=== PATIENT | female | born 1990 | race African-American/Black ===

== ENCOUNTER 2018-03-23 07:53 | Emergency (ER) | payer MEDICAID, OTHER ==
[~2018-03-23] VITALS: Ht 167.6 cm; Wt 123.0 kg
[~2018-03-23 07:53] MED LIST: AMOXICILLIN; IBUP-2030; NITR100C11
[2018-03-23] MEDS ORDERED: IBUPROFEN 600MG TABLET PO ONE (10:00)
[2018-03-23 11:05] VITALS: BP 156/90
== END 2018-03-23 11:21 | disposition home or self-care (01) ==
LOC: ER 07:55
DX: H60.91 Unspecified otitis externa, right ear (principal); Z98.890 Other specified postprocedural states; Z79.899 Other long term (current) drug therapy
CPT/HCPCS: 99283

== ENCOUNTER 2019-07-31 20:55 | Emergency (ER) | payer OTHER ==
[~2019-07-31] VITALS: Ht 167.6 cm; Wt 100.0 kg
[~2019-07-31 20:55] MED LIST changes: -AMOXICILLIN; -NITR100C11
[2019-08-01 02:12] LABS: HEMATOCRIT. 39.4 % (36.0-48.0); HEMOGLOBIN. 13.5 g/dL (12.0-16.0); MEAN CORPUSCULAR HEMOGLOBIN 31.6 pg (28.0-32.0); MEAN CORPUSCULAR VOLUME 91.9 fL (81.0-99.0); MEAN PLATELET VOLUME 8.6 fl (7.4-10.4); PLATELET 247 x1000/uL (130-400); RED BLOOD CELL COUNT 4.28 mill/uL (4.2-5.4); RED CELL DISTRIBUTION WIDTH 13.6 % (11.6-14.6)
[2019-08-01 02:16] LABS: CHLORIDE 103 mEq/L (98-107)
[2019-08-01] MEDS: ACETAMINOPHEN 325MG TABLET PO STA ×2 (02:21→05:34)
[2019-08-01] MEDS: KETOROLAC 30MG/ML VIAL IV STA (02:21)
[2019-08-01] MEDS: SODIUM CHLORIDE 0.9% 1,000 ML IV ONE (02:21)
[2019-08-01] MEDS: ONDANSETRON HCL 4MG/2ML INJ IV STA (02:21)
[2019-08-01 03:14] LABS: PLATELET ESTIMATE NORMAL
[2019-08-01 03:37] LABS: CLARITY URINE CLOUDY (CLEAR); COLOR URINE YELLOW (YELLOW); KETONES URINE 2+ (NEGATIVE); LEUKOCYTE ESTERASE URINE 2+ (NEGATIVE); NITRITE URINE NEGATIVE (NEGATIVE); OCCULT BLOOD URINE NEGATIVE (NEGATIVE); PROTEIN URINE NEGATIVE (NEGATIVE); SPECIFIC GRAVITY URINE 1.018 (1.005-1.030); UROBILINOGEN URINE 0.2 E.U./dL (0.2-1.0)
[2019-08-01] MEDS: CEFTRIAXONE 1 G PREMIX 50 ML IV STA (04:24)
[2019-08-01 05:00] VITALS: BP 137/84
[2019-08-01] MEDS ORDERED: KETOROLAC 30MG/ML VIAL IV NR (05:31)
== END 2019-08-01 06:48 | disposition home or self-care (01) ==
LOC: ER 20:55
DX: J10.1 Influenza due to other identified influenza virus with other respiratory manifestations (principal); N39.0 Urinary tract infection, site not specified; M60.89 Other myositis, multiple sites
CPT/HCPCS: 36415; 71045; 80053; 81003; 82962; 85025; 87804; 96365; 96366; 96375; 99284; J0696; J1885; J2405; J7030

== ENCOUNTER 2020-12-19 17:09 | Emergency (ER) | payer MEDICAID, OTHER ==
[~2020-12-19] VITALS: Ht 170.2 cm; Wt 125.0 kg
[2020-12-19] MEDS ORDERED: VISCOUS LIDOCAINE 2% 15 ML UDC PO ONE (17:30)
[2020-12-19] MEDS ORDERED: MAGNESIUM/ALUMINUM HYDROXIDE/SIMETHICONE 30ML UDC PO ONE (17:30)
[2020-12-19] MEDS ORDERED: ONDANSETRON 4MG ODT PO ONE (17:30)
[2020-12-19 18:43] LABS: CHLORIDE 106 mEq/L (98-107)
[2020-12-19 18:48] LABS: HEMATOCRIT. 38.7 % (36.0-48.0); HEMOGLOBIN. 13.5 g/dL (12.0-16.0); MEAN CORPUSCULAR HEMOGLOBIN 31.8 pg (28.0-32.0); MEAN CORPUSCULAR VOLUME 90.9 fL (81.0-99.0); MEAN PLATELET VOLUME 9.6 fl (7.4-10.4); PLATELET 242 x1000/uL (130-400); RED BLOOD CELL COUNT 4.26 mill/uL (4.2-5.4); RED CELL DISTRIBUTION WIDTH 13.5 % (11.6-14.6)
[2020-12-19 19:25] LABS: PLATELET ESTIMATE NORMAL
[2020-12-19 20:16] LABS: CLARITY URINE CLOUDY (CLEAR); COLOR URINE YELLOW (YELLOW); KETONES URINE 2+ (NEGATIVE); LEUKOCYTE ESTERASE URINE TRACE (NEGATIVE); NITRITE URINE NEGATIVE (NEGATIVE); OCCULT BLOOD URINE NEGATIVE (NEGATIVE); PH URINE 7.5 (4.5-8.0); PROTEIN URINE NEGATIVE (NEGATIVE); SPECIFIC GRAVITY URINE 1.017 (1.005-1.030); UROBILINOGEN URINE 0.2 E.U./dL (0.2-1.0)
[2020-12-19] MEDS ORDERED: OMEP40CA12 MT (20:45)
[2020-12-19 21:10] VITALS: BP 144/91
== END 2020-12-19 21:14 | disposition home or self-care (01) ==
LOC: ER 17:09
DX: K29.70 Gastritis, unspecified, without bleeding (principal); R03.0 Elevated blood-pressure reading, without diagnosis of hypertension; K76.9 Liver disease, unspecified; R31.9 Hematuria, unspecified
CPT/HCPCS: 36415; 76700; 80053; 81003; 81025; 83690; 85025; 99284; Q0162

== ENCOUNTER 2021-05-04 09:34 | Emergency (ER) | payer MEDICAID ==
[~2021-05-04] VITALS: Ht 165.1 cm; Wt 117.0 kg
[~2021-05-04 09:34] MED LIST changes: +OMEP40CA20 MT
[2021-05-04] MEDS ORDERED: ACETAMINOPHEN 325MG TABLET PO STA (09:51)
[2021-05-04] MEDS ORDERED: SODIUM CHLORIDE 0.9% 1,000 ML IV ONE (10:00)
[2021-05-04] MEDS ORDERED: AMPICILLIN SOD/SULBACTAM NA 3 G in SODIUM CHLORIDE 0.9% 100 ML IV SCH (10:00)
[2021-05-04 10:11] LABS: BASOPHILS % 1.1 % (0.0-2.0); EOSINOPHILS % 0.6 % (0.0-5.0); HEMATOCRIT. 37.9 % (36.0-48.0); HEMOGLOBIN. 12.8 g/dL (12.0-16.0); LYMPHOCYTES % 21.7 % (20.0-50.0); MEAN CORPUSCULAR HEMOGLOBIN 31.6 pg (28.0-32.0); MEAN CORPUSCULAR VOLUME 93.5 fL (81.0-99.0); MEAN PLATELET VOLUME 8.4 fl (7.4-10.4); MONOCYTES % 5.2 % (2.0-8.0); NEUTROPHILS % 71.4 % (40.0-76.0); PLATELET 272 x1000/uL (130-400); RED BLOOD CELL COUNT 4.06 mill/uL (4.2-5.4); RED CELL DISTRIBUTION WIDTH 13.6 % (11.6-14.6)
[2021-05-04 10:22] LABS: CHLORIDE 107 mEq/L (98-107)
[2021-05-04 10:30] LABS: HCG SCREEN NEGATIVE
[2021-05-04] MEDS ORDERED: NAPR-681 MT (11:51)
[2021-05-04] MEDS ORDERED: PENI500T MT (11:51)
[2021-05-04] MEDS ORDERED: IOHEXOL-300 100 ML BOTTLE ONE (12:07)
[2021-05-04 12:50] VITALS: BP 146/95
== END 2021-05-04 13:07 | disposition home or self-care (01) ==
LOC: ER 09:34
DX: K04.7 Periapical abscess without sinus (principal)
CPT/HCPCS: 36415; 70487; 80053; 84703; 85025; 96365; 99285; J0295; J7030; J7050; Q9967; Z7610

== ENCOUNTER 2021-06-04 12:34 | Emergency (ER) | payer MEDICAID ==
[~2021-06-04] VITALS: Ht 160 cm; Wt 99.0 kg
[~2021-06-04 12:34] MED LIST changes: +NAPR-681 MT; +PENI500T MT
[2021-06-04] MEDS ORDERED: ONDANSETRON HCL 4MG/2ML INJ IV STA (13:57)
[2021-06-04] MEDS ORDERED: KETOROLAC 30MG/ML VIAL IV STA (13:57)
[2021-06-04] MEDS ORDERED: SODIUM CHLORIDE 0.9% 1,000 ML IV ONE (14:00)
[2021-06-04 14:14] LABS: HEMOGLOBIN. 13.3 g/dL (12.0-16.0); MEAN CORPUSCULAR HEMOGLOBIN 31.1 pg (28.0-32.0); MEAN CORPUSCULAR VOLUME 93.7 fL (81.0-99.0); MEAN PLATELET VOLUME 9.4 fl (7.4-10.4); PLATELET 249 x1000/uL (130-400); RED BLOOD CELL COUNT 4.27 mill/uL (4.2-5.4); RED CELL DISTRIBUTION WIDTH 13.8 % (11.6-14.6)
[2021-06-04 14:20] LABS: CHLORIDE 104 mEq/L (98-107)
[2021-06-04 14:22] LABS: HCG SCREEN NEGATIVE
[2021-06-04 14:30] LABS: PLATELET ESTIMATE NORMAL
[2021-06-04] MEDS ORDERED: ACETAMINOPHEN 650MG/20.3ML UDC PO NR (17:45)
[2021-06-04] MEDS ORDERED: CASIRIVIMAB 600 MG, IMDEVIMAB 600 MG in SODIUM CHLORIDE 0.9% 100 ML IV SCH (18:00)
[2021-06-04] MEDS ORDERED: IBUP-2029 MT (18:26)
[2021-06-04] MEDS ORDERED: IOHEXOL-300 100 ML BOTTLE ONE (19:58)
[2021-06-04 20:28] VITALS: BP 143/80
== END 2021-06-04 21:18 | disposition home or self-care (01) ==
LOC: ER 12:34
DX: M79.18 Myalgia, other site (principal); R50.9 Fever, unspecified; Z20.822 Contact with and (suspected) exposure to COVID-19; F41.9 Anxiety disorder, unspecified
CPT/HCPCS: 36415; 71045; 74177; 80053; 83605; 83690; 84703; 85025; 87426; 87804; 93005; 96365; 96375; 99285; C9803; J1885; J2405; J7030; J7050; Q9967; U0003; U0005; Q0244

== ENCOUNTER → 2022-10-12 | Emergency (ER) | payer MEDICAID ==
[~2022-10-12] VITALS: Ht 162.6 cm; Wt 118.0 kg
[~2022-10-12] MED LIST changes: +CYCL10TA21 MT; +DEXAMETHASONE 10 MG/ML VIAL IM ONE; +IBUP-2029 MT; +KETOROLAC 60MG/2ML VIAL IM ONE; +LIDOCAINE 5% PATCH TOP SCH; +NAPR220C61 MT
[2022-10-12 09:28] LABS: CLARITY URINE CLEAR (CLEAR); COLOR URINE YELLOW (YELLOW); KETONES URINE NEGATIVE (NEGATIVE); LEUKOCYTE ESTERASE URINE TRACE (NEGATIVE); NITRITE URINE NEGATIVE (NEGATIVE); OCCULT BLOOD URINE NEGATIVE (NEGATIVE); PROTEIN URINE NEGATIVE (NEGATIVE); SPECIFIC GRAVITY URINE 1.018 (1.005-1.030); UROBILINOGEN URINE 0.2 E.U./dL (0.2-1.0)
[2022-10-12 10:50] VITALS: BP 134/80
== END | disposition home or self-care (01) ==
LOC: ER 08:37
DX: M54.50 Low back pain, unspecified (principal); F12.90 Cannabis use, unspecified, uncomplicated
CPT/HCPCS: 81003; 81025; 96372; 99284; J1100; J1885; Z7610

== ENCOUNTER 2022-12-01 18:16 | Emergency (ER) | payer MEDICAID ==
[~2022-12-01] VITALS: Ht 170.2 cm; Wt 109.0 kg
[~2022-12-01 18:16] MED LIST changes: -DEXAMETHASONE 10 MG/ML VIAL IM ONE; -KETOROLAC 60MG/2ML VIAL IM ONE; -LIDOCAINE 5% PATCH TOP SCH
[2022-12-01] MEDS ORDERED: IBUP-2029 MT (21:07)
[2022-12-01] MEDS ORDERED: CYCL10TA21 MT (21:07)
[2022-12-01] MEDS ORDERED: HYDROCODONE/ACETAMINOPHEN 5/325MG TABLET PO ONE (21:15)
[2022-12-01 22:01] VITALS: BP 145/98
== END 2022-12-01 22:03 | disposition home or self-care (01) ==
LOC: ER 18:16
DX: M54.50 Low back pain, unspecified (principal); M54.2 Cervicalgia; R51.9 Headache, unspecified; R42 Dizziness and giddiness; R11.10 Vomiting, unspecified
CPT/HCPCS: 81025; 99284